=== PATIENT | female | born 2000 | race Two or more races ===

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

== ENCOUNTER 2023-02-03 19:43 | Inpatient (IN) | payer MEDICAID, OTHER ==
[2023-02-03] MEDS ORDERED: MAGNESIUM HYDROXIDE 2,400 MG/10 ML CUP PO PRN (20:04)
[2023-02-03] MEDS ORDERED: MAG HYDROX/AL HYDROX/SIMETH 30 ML CUP PO PRN (20:04)
[2023-02-03] MEDS ORDERED: ACETAMINOPHEN TAB 325 MG TAB PO PRN (20:04)
[2023-02-03] MEDS ORDERED: haloperidoL 5 MG TAB PO PRN (20:05)
[2023-02-03] MEDS ORDERED: LORazepam 2 MG/ML INJ IM PRN (20:05)
[2023-02-03] MEDS ORDERED: HALOPERIDOL LACTATE 5 MG/ML 1 ML VIAL IM PRN (20:05)
[2023-02-03] MEDS ORDERED: LORazepam 1 MG TAB PO PRN (20:05)
[2023-02-04] MEDS: NICOTINE 14MG/24HR PATCH TRANSDERM SCH (09:56)
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
[2023-02-04] MEDS ORDERED: LORazepam 1 MG TAB PO SCH (16:00)
[2023-02-05] MEDS: NICOTINE 14MG/24HR PATCH TRANSDERM SCH (09:04)
[2023-02-05] MEDS: SERTRALINE 50 MG TAB PO SCH (09:04)
--- NOTE | 2023-02-05 14:27 | P.PN ---
Subjective Progress Note Date: 02/05/23 Principal diagnosis: IMPRESSIONS: Depressive disorder unspecified Alcohol use disorder severe dependence Relationship problems Rule out personality disorder with dependency traits Subjective/objective data: Patient reports that she is feeling slightly better She also states that she does talk to her mother and that they both want her to be assessed for Asperger's syndrome Patient states that she has some difficulty in social situations and getting along with people . She denies having any difficulty understanding simple concepts about issues in general Mother also described her as somewhat eccentric and odd Patient currently is that her depression seems to be improving She denies any suicidal plans but states that the ideations have always been there for years MENTAL STATUS EXAM: General Appearance: Patient was laying in bed but sat up on approach and was pleasant and cooperative , Appears to be stated age, directable, and attempts to cooperate. Pleasant overall, Patient appears to have fair hygiene and grooming. Behavior: Patient is seated without any agitated behavior. Pleasant. Cooperative. Speech: Patient's speech is fluent and nonpressured. Mood/Affect: Patient reports their mood is depressed, affect is congruent and constricted. Suicidality/Homicidality: Patient denies having any homicidal ideation intent or plan. Denies any suicidal intent or plan but states that she has chronic suicidal ideations Perceptions: Patient denies any visual hallucinations and denies any auditory hallucinations Though content/process: There is no evidence of any delusional thought content and thought process is linear and goal-directed. Memory and concentration: AOX3, grossly intact for the purposes of this session. Can spell "WORLD" backwards Judgment and insight: poor STRENGTHS/WEAKNESSES: strength is that patient is resilient. Weakness is that patient has poor judgment and a history of chronic alcohol abuse INTELLECT: average IMPRESSIONS: Depressive disorder unspecified Alcohol use disorder unspecified Relationship problems Rule out personality disorder with dependency traits PLAN: -Patient is admitted under voluntary status to [facility] for stabilization of psychiatric symptoms and safety. -Medications : Have started the patient on Zoloft 150 mg daily -Ativan and Haldol PRN for agitation/aggression. -Not noticed any withdrawal symptoms and have kept her lorazepam when necessary only -Patient was counselled on substance abuse and desired to cut back on use and is interested in going to rehab. -Patient was informed of the risks, benefits and side effects of the medication and patient verbally consented to taking the medications. Patient signed med consent form and was placed in chart. -Internal Medicine consult to perform medical evaluation and physical. -SW on board for discharge planning. Encourage patient to participate in groups to work on coping skills. Angel Ramos M.D. 03/04/2023 Objective - Vital Signs Vital signs: Vital Signs Temp 98.6 F 02/05/23 06:00 Pulse 75 02/05/23 06:00 Resp 17 02/05/23 06:00 BP 106/57 02/05/23 06:00 Pulse Ox 100 02/05/23 06:00 FiO2
[2023-02-06] MEDS: SERTRALINE 50 MG TAB PO SCH (09:37)
[2023-02-06] MEDS: NICOTINE 14MG/24HR PATCH TRANSDERM SCH (09:37)
--- NOTE | 2023-02-06 11:48 | P.PN ---
Subjective Progress Note Date: 02/06/23 Principal diagnosis: IMPRESSIONS: Depressive disorder unspecified Alcohol use disorder severe dependence Relationship problems Rule out personality disorder with dependency traits Subjective/objective data: Patient reports that she is feeling slightly better The patient reports that staying other unit's has helped her understand that there are other people who have similar issues and problems She admits that she has always been avoidant and was not open person about discussing her feelings and issues She also states that she realizes that there is lot of help out their and that she can seek it out and do get better Patient currently is that her depression seems to be improving She denies any suicidal plans but states that the ideations have always been there for years MENTAL STATUS EXAM: General Appearance: Patient was laying in bed but sat up on approach and was pleasant and cooperative , Appears to be stated age, directable, and attempts to cooperate. Pleasant overall, Patient appears to have fair hygiene and grooming. Behavior: Patient is seated without any agitated behavior. Pleasant. Cooperative. Speech: Patient's speech is fluent and nonpressured. Mood/Affect: Patient reports their mood is depressed, affect is congruent and constricted. Suicidality/Homicidality: Patient denies having any homicidal ideation intent or plan. Denies any suicidal intent or plan but states that she has chronic suicidal ideations Perceptions: Patient denies any visual hallucinations and denies any auditory hallucinations Though content/process: There is no evidence of any delusional thought content and thought process is linear and goal-directed. Memory and concentration: AOX3, grossly intact for the purposes of this session. Can spell "WORLD" backwards Judgment and insight: poor STRENGTHS/WEAKNESSES: strength is that patient is resilient. Weakness is that patient has poor judgment and a history of chronic alcohol abuse INTELLECT: average IMPRESSIONS: Depressive disorder unspecified Alcohol use disorder unspecified Relationship problems Rule out personality disorder with dependency traits PLAN: -Patient is admitted under voluntary status to [facility]HU for stabilization of psychiatric symptoms and safety. -Medications : Have started the patient on Zoloft 150 mg daily -Ativan and Haldol PRN for agitation/aggression. -Not noticed any withdrawal symptoms and have kept her lorazepam when necessary only -Patient was counselled on substance abuse and desired to cut back on use and is interested in going to rehab. -Patient was informed of the risks, benefits and side effects of the medication and patient verbally consented to taking the medications. Patient signed med consent form and was placed in chart. -Internal Medicine consult to perform medical evaluation and physical. -SW on board for discharge planning. Encourage patient to participate in groups to work on coping skills. Angel Ramos M.D. 02/06/2023 Objective - Vital Signs Vital signs: Vital Signs Temp 97.8 F 02/06/23 06:27 Pulse 84 02/06/23 06:27 Resp 14 02/06/23 06:27 BP 116/64 02/06/23 06:27 Pulse Ox 100 02/05/23 06:00 FiO2 Intake & Output 02/05/23 02/06/23 02/06/23 18:59 06:59 18:59 Weight 62.2 kg
[2023-02-07] MEDS: NICOTINE 14MG/24HR PATCH TRANSDERM SCH (08:31)
[2023-02-07] MEDS: SERTRALINE 50 MG TAB PO SCH ×3 (08:31→20:55)
--- NOTE | 2023-02-07 13:50 | P.PN ---
Progress Note - Text Progress Note Date: 02/07/23 Subjective/objective data: Patient reports that she is feeling slightly better with regards to her mood and anxiety. She states that she came in due to feeling severely depressed and also drinking heavily. She claims that she does have alcohol cravings and was interested in trying naltrexone at this time. She states that she feels fairly tired during the day however does like being on the Zoloft. We spoke about nighttime dosing that she is okay with. She also asked if there is any other medication help her with sleep as she is not doing well with sleep at this time. She claims that she is trying to go to groups and participate as best she can. She spoke about also calling rehab and possibly going to [facility] once discharged. At this time she is denying any auditory or visual hallucinations. She is denying any suicidal or homicidal ideations intent or plan. She is denying any other side effects from medications has been taking them. MENTAL STATUS EXAM: General Appearance: Patient was seen watching television in the lounge with other patients. Appears to be stated age, was wearing glasses, directable, and attempts to cooperate. Pleasant overall Behavior: Patient is seated without any agitated behavior. Pleasant. Cooperative. Speech: Patient's speech is fluent and nonpressured. [place] Mood/Affect: Patient reports their mood is depressed, and anxious. This is improving mildly. affect is congruent Suicidality/Homicidality: Patient denies having any homicidal ideation intent or plan. Denies any suicidal intent or plan Perceptions: Patient denies any visual hallucinations and denies any auditory hallucinations Though content/process: There is no evidence of any delusional thought content and thought process is linear and goal-directed. concrete. Memory and concentration: AOX3, grossly intact for the purposes of this session. Can spell "WORLD" backwards Judgment and insight: poor, improving mildly IMPRESSIONS: major depressive disorder without psychotic features Alcohol use disorder Relationship problems nicotine dependence PLAN: -Patient is admitted under voluntary status to [facility]HU for stabilization of psychiatric symptoms and safety. -Medications : switched Zoloft 150 mg to qhs dosing for mood/anxiety, start trazodone 25 mg qhs for insomnia/mood, start naltrexone 50 mg daily for etoh cravings -Ativan and Haldol PRN for agitation/aggression. -NRT - nicotine patch -SW on board for discharge planning. Encourage patient to participate in groups to work on coping skills. awaiitng rehab decision/intake date
[2023-02-07] MEDS: NALTREXONE HCL 50 MG TAB PO SCH (14:27)
[2023-02-07 15:42] LABS: ALT 28 U/L (4-34); AST 24 U/L (14-36); African American GFR (CKD) >90 (>60 ml/min/1.73 sqM); Albumin 4.9 g/dL (3.5-5.0); Alkaline Phosphatase 69 U/L (38-126); Anion Gap 12 mmol/L; Blood Urea Nitrogen 14 mg/dL (7-17); Calcium 9.6 mg/dL (8.4-10.2); Carbon Dioxide 24 mmol/L (22-30); Chloride 102 mmol/L (98-107); Glucose 122 mg/dL (74-99); Non-African American GFR(CKD) >90 (>60 ml/min/1.73 sqM); Potassium 4.2 mmol/L (3.5-5.1); Sodium 138 mmol/L (137-145); Total Bilirubin 0.4 mg/dL (0.2-1.3); Total Protein 7.5 g/dL (6.3-8.2)
[2023-02-07 15:48] LABS: Basophils % (A) 1 %; Eosinophils % (A) 1 %; HCT 35.8 % (34.0-46.0); HGB 11.6 gm/dL (11.4-16.0); Lymphocytes # (A) 1.5 k/uL (1.0-4.8); Lymphocytes % (A) 24 %; MCH 25.4 pg (25.0-35.0); MCHC 32.4 g/dL (31.0-37.0); MCV 78.5 fL (80.0-100.0); Mean Platelet Volume 8.5; Monocytes # (A) 0.3 k/uL (0-1.0); Monocytes % (A) 4 %; Neutrophils # (A) 4.2 k/uL (1.3-7.7); Neutrophils % (A) 69 %; Platelet Count 357 k/uL (150-450); RBC 4.56 m/uL (3.80-5.40); RDW 14.9 % (11.5-15.5)
[2023-02-07] MEDS: traZODone HCL 50 MG TAB PO SCH (20:52)
[2023-02-08] MEDS: NICOTINE 14MG/24HR PATCH TRANSDERM SCH (08:24)
[2023-02-08] MEDS: NALTREXONE HCL 50 MG TAB PO SCH (08:25)
--- NOTE | 2023-02-08 12:50 | P.PN ---
Progress Note - Text Progress Note Date: 02/08/23 (\) Subjective data: Patient reports that she is feeling slightly better with regards to her mood and anxiety. Patient was not able to take the Zoloft last night due to taking in the morning. She claims that the naltrexone has been helping with her cravings recently and she is happy that she is on it. She is fairly worried about being discharged too early going home and relapsing. She claims that she did hear something about her getting into rehab and believes that it will be which she is happy about. She is claiming that she is going to groups and participating as best as she can. She states that the trazodone doesn't help with sleep last night. At this time she is denying any auditory or visual hallucinations. She is denying any suicidal or homicidal ideations intent or plan. She is denying any other side effects from medications has been taking them. MENTAL STATUS EXAM: General Appearance: Patient was seen watching television in the lounge with other patients. Appears to be stated age, was wearing glasses, directable, and attempts to cooperate. Pleasant overall Behavior: Patient is seated without any agitated behavior. Pleasant. Cooperative. Speech: Patient's speech is fluent and nonpressured. [place] Mood/Affect: Patient reports their mood is depressed, and anxious. This is improving mildly. affect is congruent Suicidality/Homicidality: Patient denies having any homicidal ideation intent or plan. Denies any suicidal intent or plan Perceptions: Patient denies any visual hallucinations and denies any auditory hallucinations Though content/process: There is no evidence of any delusional thought content and thought process is linear and goal-directed. concrete. Memory and concentration: AOX3, grossly intact for the purposes of this session Judgment and insight: poor, improving mildly IMPRESSIONS: major depressive disorder without psychotic features Alcohol use disorder Relationship problems nicotine dependence PLAN: -Patient is admitted under voluntary status to [facility]HU for stabilization of psychiatric symptoms and safety. -Medications : Zoloft 150 mg qhs dosing for mood/anxiety, continue trazodone 25 mg qhs for insomnia/mood, naltrexone 50 mg daily for etoh cravings -Ativan and Haldol PRN for agitation/aggression -NRT - nicotine patch - on board for discharge planning. Encourage patient to participate in groups to work on coping skills. awaiting rehab intake date set for to , due to patients high liklihood of relapse will discharge straight from the unit to .
[2023-02-08] MEDS: SERTRALINE 50 MG TAB PO SCH (21:24)
[2023-02-08] MEDS: traZODone HCL 50 MG TAB PO SCH (21:25)
--- NOTE | 2023-02-09 01:22 | CONS ---
CONSULTATION CHIEF COMPLAINT: Major depression. HISTORY OF PRESENT ILLNESS: This lady is having partner issues and had become extremely depressed. She also is an alcoholic and was drinking to deal with her depression. She came to the emergency room suicidal and was admitted. REVIEW OF SYSTEMS: She has had no headaches, chest pain, heart disease, hypertension, abdominal pain, nausea, vomiting, hematemesis, melena, hematochezia, jaundice, hepatitis, renal disease, incontinence, dysuria, frequency, nocturia, etc. She is not diabetic. Past medical history, family history, personal and social histories reveal that she is not allergic to any medication. She is on Depo-Provera and uses albuterol inhaler. She does smoke and she abuses alcohol. PHYSICAL EXAMINATION: VITAL SIGNS: Blood pressure 132/75 with a pulse of 76, respirations of 15 and she is afebrile. GENERAL: She appeared to be in no acute distress. HEAD, EARS, EYES, NOSE, MOUTH: Normal. CHEST: Clear. CARDIAC: Normal. ABDOMEN: Soft and nontender. EXTREMITIES: Normal. IMPRESSION: 1. Major depression with suicidal thoughts. 2. Alcoholism. 3. Nicotine abuse. RECOMMENDATIONS: None. MMODL / IJN: [id number] /
[2023-02-09 07:09] VITALS: BP 105/57; PULSE 62; RESP 14; TEMP 98.7
[2023-02-09] MEDS: NALTREXONE HCL 50 MG TAB PO SCH (09:10)
[2023-02-09] MEDS: NICOTINE 14MG/24HR PATCH TRANSDERM SCH (09:10)
--- NOTE | 2023-02-09 11:17 | P.PN ---
Progress Note - Text Progress Note Date: 02/09/23 Subjective data: Patient reports that she is feeling slightly better today and claims that the Z oloft has been helping her mood and anxiety. She states that she was able to sleep a lot better last night the Zoloft and trazodone. She claims that she spoke with her mother yesterday about the plan for discharge straight to rehab. We spoke about her medications further and she asked questions. She seems to be more appropriate and directable. She has been trying to go to groups and participate on the milieu. Claims have been improving appetite. At this time she is denying any auditory or visual hallucinations. She is denying any suicidal or homicidal ideations intent or plan. She is denying any other side effects from medications has been taking them. She continues to claim that she feels at high risk for relapse if she were to return home without going to rehab. MENTAL STATUS EXAM: General Appearance: Patient was seen watching television in the lounge with other patients. Appears to be stated age, was wearing glasses, directable, and attempts to cooperate. Pleasant overall Behavior: Patient is seated without any agitated behavior. Pleasant. Cooperative. Speech: Patient's speech is fluent and nonpressured. [place], improving mildly Mood/Affect: Patient reports their mood is improving mildly. affect is congruent and improving Suicidality/Homicidality: Patient denies having any homicidal ideation intent or plan. Denies any suicidal intent or plan Perceptions: Patient denies any visual hallucinations and denies any auditory hallucinations Though content/process: There is no evidence of any delusional thought content and thought process is linear and goal-directed. More future oriented. Memory and concentration: AOX3, grossly intact for the purposes of this session Judgment and insight: poor, improving mildly IMPRESSIONS: major depressive disorder without psychotic features Alcohol use disorder Relationship problems nicotine dependence PLAN: -Patient is admitted under voluntary status to [facility] for stabilization of psychiatric symptoms and safety. -Medications : Zoloft 150 mg qhs dosing for mood/anxiety, continue trazodone 25 mg qhs for insomnia/mood, naltrexone 50 mg daily for etoh cravings -Ativan and Haldol PRN for agitation/aggression -NRT - nicotine patch - on board for discharge planning. Encourage patient to participate in groups to work on coping skills. awaiting rehab intake date set for thursday morning to , due to patients high liklihood of relapse will discharge straight from the unit to . Patient's mother will pick her up in the morning to go to rehab tomorrow.
[2023-02-09] MEDS: traZODone HCL 50 MG TAB PO SCH (21:37)
[2023-02-09] MEDS: SERTRALINE 50 MG TAB PO SCH (21:37)
[2023-02-10] MEDS: NALTREXONE HCL 50 MG TAB PO SCH (09:23)
[2023-02-10] MEDS: NICOTINE 14MG/24HR PATCH TRANSDERM SCH (09:23)
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
== END 2023-02-10 09:25 | disposition other institution (70) | DRG 754 ==
LOC: 3MHU 21:17
PROVIDERS: ADMIT Psychiatry & Neurology Psychiatry; ATTEND Psychiatry & Neurology Psychiatry
DX: F32.9 Major depressive disorder, single episode, unspecified (principal); F10.20 Alcohol dependence, uncomplicated; R45.851 Suicidal ideations; G47.00 Insomnia, unspecified; F41.9 Anxiety disorder, unspecified; N96 Recurrent pregnancy loss; F60.7 Dependent personality disorder; F17.200 Nicotine dependence, unspecified, uncomplicated; Z91.51 Personal history of suicidal behavior; Z63.0 Problems in relationship with spouse or partner; Z28.310 Unvaccinated for COVID-19
CPT/HCPCS: 80053; 85025